=== PATIENT | male | born 1970 ===

== ENCOUNTER 2019-10-11 16:08 | Emergency (ER) | payer OTHER ==
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
[2019-10-11] MEDS ORDERED: KETOROLAC 60 MG/2 ML INJ IM ONE (21:35)
[2019-10-11] MEDS ORDERED: oxyCODONE 5 MG TAB PO ONE (21:35)
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
[2019-10-11 22:14] VITALS: BP 115/64
== END 2019-10-11 22:50 | disposition home or self-care (01) ==
LOC: ED 16:08
DX: S39.012A Strain of muscle, fascia and tendon of lower back, initial encounter (principal); S16.1XXA Strain of muscle, fascia and tendon at neck level, initial encounter; S20.212A Contusion of left front wall of thorax, initial encounter; Z79.899 Other long term (current) drug therapy; V49.49XA Driver injured in collision with other motor vehicles in traffic accident, initial encounter; Y93.89 Activity, other specified; Y92.488 Other paved roadways as the place of occurrence of the external cause; Y99.8 Other external cause status
CPT/HCPCS: 71101; 72040; 72100; 96372; 99283; J1885